=== PATIENT | female | born 1980 | race Caucasian/White ===

== ENCOUNTER → 2020-10-24 17:52 | Outpatient (CLI) | payer OTHER, SELFPAY ==
--- NOTE | ~2020-10-24 | MM_ITS ---
EXAMINATION: MM screening kisha BI w fernanda HISTORY: Screening TECHNIQUE: Craniocaudal and mediolateral oblique 3-D tomosynthesis images were obtained and synthetic 2-D images were generated. CAD analysis was submitted and interpreted. COMPARISON: No prior mammogram is available for comparison at this institution. BREAST PARENCHYMAL COMPOSITION: There are scattered areas of fibroglandular density. FINDINGS: There are benign bilateral intramammary lymph nodes. There is no evidence of suspicious mas s, calcification, or architectural distortion to suggest malignancy in either breast. There has been no suspicious interval change. IMPRESSION: 1. No mammographic evidence of malignancy. 2. Recommend routine screening mammography in one year. BI-RADS Category 2: Benign finding(s). Reviewed, dictated and finalized at location A.
== END ==
PROVIDERS: Visit Provider Obstetrics & Gynecology
DX: Z12.31 Encounter for screening mammogram for malignant neoplasm of breast (principal)
CPT/HCPCS: 77063; 77067

== ENCOUNTER 2021-10-01 13:53 | Emergency (ER) | payer OTHER, SELFPAY ==
[2021-10-01 14:04] VITALS: BP 106/9; PULSE 107; RESP 20; TEMP 36.4; O2SAT 99
[2021-10-01 14:08] VITALS: BP 106/9; PULSE 107; RESP 20; TEMP 36.4; O2SAT 99
--- NOTE | 2021-10-01 14:41 | ED.SKABFB ---
HPI - Skin/Abscess/Foreign Bdy General Chief complaint: Skin/Abscess/Foreign Body Stated complaint: wasp sting Time Seen by Provider: 10/01/21 14:41 Source: patient Mode of arrival: ambulatory Limitations: no limitations History of Present Illness HPI narrative: 41-year-old female presented for complaint of left lower leg redness and swelling after wasp sting 3 days ago. She states she has been using Benadryl, Benadryl cream, and applying cool compresses but the redness continues to spread. Endorses itching and mild pain. Denies lip, tongue, throat swelling, shortness of breath or wheezing. MD complaint: rash Related Data Home Medications Medication Instructions Recorded Confirmed etonogestrel 0.12 mg-ethinyl See Rx Instructions .Route .COMPLEX 10/01/21 10/01/21 estradiol 0.015 mg/24 hr vaginal ring Allergies Allergy/AdvReac Type Severity Reaction Status Date / Time No Known Allergies Allergy Verified 10/01/21 14:05 Review of Systems Review of Systems: CONSTITUTIONAL: Denies body aches, fever, chills, or sweats. EYES: Denies visual changes, redness, or discharge. ENT: Denies rhinorrhea, congestion, sore throat, or otalgia. CARDIOVASCULAR: Denies chest pain, palpitations, or edema. RESPIRATORY: Denies cough or dyspnea. GASTROINTESTINAL: Denies abdominal pain, nausea, vomiting, or diarrhea. SKIN: reports redness, itching MUSCULOSKELETAL: Denies back pain, joint pain, or myalgia. NEUROLOGIC: Denies headache, numbness, tingling, or weakness. PMFSH Comments At time of signature, I have reviewed and agree with nursing past medical, surgical, social and family history unless otherwise noted. Please see nursing chart for further information. There is no relevant family history pertinent to the presenting complaint Exam Narrative: GENERAL: Well-appearing EYES: conjunctivae clear, and EOMI. ENT: Mucous membranes moist. Oropharynx without edema, erythema or lesions. CHEST: Clear to auscultation. No respiratory distress. HEART: Regular rate and rhythm. SKIN: Warm, dry. Left lower posterior leg with bright red erythematous area of 8cm diameter, with surrounding dark red irregular area approx [id number], skin is warm, tight, mild tender with palpation, flat, c/w cellulitis; no fluctuance or drainage NEURO: Alert and oriented x3. PSYCH: Normal mood and affect Course Course Emergency Course: Patient is aware of diagnosis, understands and agrees to treatment plan. Anticipatory guidance given. Patient agrees to follow-up as directed and is aware of reasons to seek care at the emergency department. Portions of this record may have been created with voice recognition software Level of Care: Express Care Visit Vital Signs Vital signs: Vital Signs Temperature 97.5 F L 10/01/21 14:04 Pulse Rate 107 H 10/01/21 14:04 Respiratory Rate 20 10/01/21 14:04 Blood Pressure 106/9 L 10/01/21 14:04 Pulse Oximetry 99 10/01/21 14:04 Oxygen Delivery Room Air 10/01/21 14:04 Temperature 97.5 F L 10/01/21 14:08 Pulse Rate 107 H 10/01/21 14:08 Respiratory Rate 20 10/01/21 14:08 Blood Pressure 106/9 L 10/01/21 14:08 Pulse Oximetry 99 10/01/21 14:08 Oxygen Delivery Room Air 10/01/21 14:08 Reviewed MDM - Skin/Abscess/Foreign Bdy MDM Narrative Medical decision making narrative: Does not appear at this time to be erythema multiforme, bullous, SJS, TEN. PE c/w cellulitis 2/2 insect sting. Patient looks well, nontoxic. Instructed patient to go to nearest ER immediately for any worsening symptoms including but not limited to: fever, spreading rash, pain, sore throat, headache, dizziness, chest pain, trouble breathing, or any symptoms concerning to the patient. Differential Diagnosis Differential diagnosis: Likely abscess of skin or subcutaneous tissue, urticaria, herpes zoster, cellulitis and contact dermatitis Discharge Plan Discharge Clinical Impression: Cellulitis Qualifiers: Site
== END 2021-10-01 14:55 | disposition home or self-care (01) ==
PROVIDERS: Emergency Provider Nurse Practitioner Family
DX: L03.116 Cellulitis of left lower limb (principal); T63.461A Toxic effect of venom of wasps, accidental (unintentional), initial encounter
CPT/HCPCS: 99203; G0463